=== PATIENT | female | born 1930 | race Caucasian/White ===

== ENCOUNTER 2020-09-03 08:43 | Emergency (ER) | payer MEDICARE ==
[2020-09-03] MEDS ORDERED: Cefdinir 300 MG Cap PO ONE (10:06)
--- NOTE | 2020-09-03 10:11 | EDM.PDOC ---
ED HPI GENERAL MEDICAL PROBLEM - General Chief Complaint: Genitourinary Problem Stated Complaint: URI Time Seen by Provider: 09/03/20 09:45 Source of Information: Reports: Patient History Limitations: Reports: No Limitations - History of Present Illness INITIAL COMMENTS - FREE TEXT/NARRATIVE: This is a 89-year-old female presents with concerns of urinary burning. She reports symptoms of been ongoing for several days, thought she could cure her infection by drinking lots of water. No fevers or chills. No flank pain. No confusion or gait instability. Does have a history of other recent UTI, cannot member which antibiotic she was treated with. Bladder Pain Score (Numeric/FACES): 10 - Related Data Allergies Allergy/AdvReac Type Severity Reaction Status Date / Time Sulfa (Sulfonamide Allergy Cannot Verified 09/03/20 09:15 Antibiotics) Remember Home Meds: Home Meds Cefdinir 300 mg PO BID #10 capsule 09/03/20 [Rx] Past Medical History HEENT History: Reports: Impaired Vision Cardiovascular History: Reports: Hypertension RE[employer] SYSTEM History: Reports: Psychiatric History: Reports: Depression - Infectious Disease History Infectious Disease History: Reports: Chicken Pox, Measles, Mumps - Past Surgical History HEENT Surgical History: Reports: Cataract Surgery GI Surgical History: Reports: Cholecystectomy Social & Family History - Tobacco Use Tobacco Use Status *Q: Never Tobacco User Second Hand Smoke Exposure: No - Caffeine Use Caffeine Use: Reports: Coffee - Recreational Drug Use Recreational Drug Use: No ED ROS GENERAL - Review of Systems Review Of Systems: See Below Constitutional: Reports: No Symptoms HEENT: Reports: No Symptoms Respiratory: Reports: No Symptoms Cardiovascular: Reports: No Symptoms Endocrine: Reports: No Symptoms GI/Abdominal: Reports: No Symptoms : Reports: Pain Musculoskeletal: Reports: No Symptoms Skin: Reports: No Symptoms Neurological: Reports: No Symptoms Psychiatric: Reports: No Symptoms Hematologic/Lymphatic: Reports: No Symptoms Immunologic: Reports: No Symptoms ED EXAM, RENAL/ - Physical Exam Exam: See Below Exam Limited By: No Limitations General Appearance: Alert, No Apparent Distress Ears: Normal External Exam Nose: Normal Inspection Throat/Mouth: Normal Inspection Head: Atraumatic, Normocephalic Neck: Normal Inspection Respiratory/Chest: No Respiratory Distress Cardiovascular: Regular Rate, Rhythm GI/Abdominal: Soft, Non-Tender Back Exam: Normal Inspection Extremities: Normal Inspection Neurological: Alert, Oriented Psychiatric: Normal Affect, Normal Mood Skin Exam: Warm, Dry Course - Vital Signs Last Recorded V/S: Last Vital Signs Temp 36.5 C 09/03/20 09:24 Pulse 75 09/03/20 09:24 Resp 16 09/03/20 09:24 BP 151/79 H 09/03/20 09:24 Pulse Ox 94 L 09/03/20 09:24 - Orders/Labs/Meds Orders: Active Orders 24 hr Category Date Time Status CULTURE URINE [RM] Stat Lab 09/03/20 10:05 Received Labs: Laboratory Tests 09/03/20 Range/Units 09:25 Urine Color Yellow (YELLOW) Urine Appearance Cloudy A (CLEAR) Urine pH 6.5 (5.0-8.0) Ur Specific [place] 1.025 (1.008-1.030) Urine Protein 100 H (NEGATIVE) mg/dL Urine Glucose (UA) Negative (NEGATIVE) mg/dL Urine Ketones Negative (NEGATIVE) mg/dL Urine Occult Blood Large H (NEGATIVE) Urine Nitrite Negative (NEGATIVE) Urine Bilirubin Negative (NEGATIVE) Urine Urobilinogen 0.2 (0.2-1.0) EU/dL Ur Leukocyte Esterase Large H (NEGATIVE) Urine RBC 50-75 H (0-5) Urine WBC Packed H (0-5) Ur Epithelial Cells Not seen Amorphous Sediment Not seen Urine Bacteria Moderate Urine Mucus Few Meds: Medications Discontinued Medications Generic Name Dose Route Start Last Admin Trade Name Freq PRN Reason Stop Dose Admin Cefdinir 300 mg 09/03/20 10:06 Cefdinir 300 Mg Cap PO 09/03/20 10:07 ONETIME ONE - Re-Assessments/Exams Free Text/Narrative Re-Assessment/Exam: 89-year-old presents with urinary discomfort. Has normal vitals and reassuring physical exam. No signs or symptoms of ascending infection. She is overall well-appearing, stable gait, do not think we need to worry about home safety in setting of an acute infection. She has a sulfa allergy. Prescribed her cefdinir, urine sent for culture. Discussed return precautions. Discharged. 09/03/20 10:13 Departure - Departure Time of Disposition: 10:10 Disposition: Home, Self-Care 01 Clinical Impression: UTI, Urinary tract infectious disease - Discharge Information *PRESCRIPTION DRUG MONITORING PROGRAM REVIEWED*: No *COPY OF PRESCRIPTION DRUG MONITORING REPORT IN PATIENT UTE: No Prescriptions: Cefdinir 300 mg PO BID #10 capsule Instructions: Urinary Tract Infection, Adult Referrals: PCP,None [Primary Care Provider] - Forms: ED Department Discharge Additional Instructions: As we discussed, your urine sample is consistent with infection. Please take the prescribed antibiotic. If you develop high fevers, flank pain, please do return to the ED so we can do a repeat evaluation. Thank you for choosing us care for you today. Sepsis Event Note (ED) - Evaluation Sepsis Screening Result: No Definite Risk - Focused Exam Vital Signs: Vital Signs Temp Pulse Resp BP Pulse Ox 09/03/20 09:24 36.5 C 75 16 151/79 H 94 L - My Orders Last 24 Hours: My Active Orders 09/03/20 10:05 CULTURE URINE [RM] Stat - Assessment/Plan Last 24 Hours: My Active Orders 09/03/20 10:05 CULTURE URINE [RM] Stat
== END 2020-09-03 10:20 | disposition home or self-care (01) ==
LOC: JP.ED 08:43
DX: N39.0 Urinary tract infection, site not specified (principal); I10 Essential (primary) hypertension; Z88.2 Allergy status to sulfonamides
CPT/HCPCS: 81001; 87086; 87088; 87186; 99283; A9270